=== PATIENT | male | born 1970 | race Two or more races ===

== ENCOUNTER 2022-04-07 12:43 | Emergency (ER) | payer BC ==
--- NOTE | 2022-04-07 12:49 | NUR ---
called. NO response
--- NOTE | 2022-04-07 13:18 | NUR ---
CALLED TO TRIAGE,NO ANSWER
--- NOTE | 2022-04-07 13:27 | NUR ---
Multiple calls NO response- ELOPED
== END 2022-04-07 13:28 | disposition home or self-care (01) ==
LOC: ER 12:54
DX: Z53.21 Procedure and treatment not carried out due to patient leaving prior to being seen by health care provider (principal)

== ENCOUNTER 2023-11-14 02:28 | Emergency (ER) | payer BC, OTHER ==
[~2023-11-14] VITALS: Ht 172.7 cm; Wt 83.9 kg
[2023-11-14] MEDS ORDERED: HYDROCODONE/APAP 5/325MG TABLET ONE (03:53)
[2023-11-14] MEDS: HYDROCODONE/APAP 5/325MG TABLET PO ONE (03:55)
[2023-11-14] MEDS ORDERED: GABA-532 PO (04:06)
[2023-11-14 04:11] VITALS: BP 149/96; TEMP 98; O2SAT 100
== END 2023-11-14 04:27 | disposition home or self-care (01) ==
LOC: ER 02:32
DX: S43.401A Unspecified sprain of right shoulder joint, initial encounter (principal); E11.9 Type 2 diabetes mellitus without complications; Z88.6 Allergy status to analgesic agent; V19.9XXA Pedal cyclist (driver) (passenger) injured in unspecified traffic accident, initial encounter; Y93.89 Activity, other specified; Y92.488 Other paved roadways as the place of occurrence of the external cause; Y99.8 Other external cause status
CPT/HCPCS: 73030-TC